=== PATIENT | male | born 1985 | race African-American/Black ===

== ENCOUNTER 2016-03-01 08:57 | Emergency (ER) | payer OTHER ==
[~2016-03-01] VITALS: Ht 180.3 cm; Wt 97.9 kg
[~2016-03-01 08:57] MED LIST: NORCO 5/3251 TABLET PO; PEN-VEE K,VEET500 MG PO
[2016-03-01] MEDS ORDERED: ULTRACET1 TABLET PO (11:05)
[2016-03-01] MEDS ORDERED: MUCINEX D ER T1 EACH PO (11:05)
[2016-03-01] MEDS ORDERED: AUGMENTIN875 MG PO (11:05)
[2016-03-01] MEDS ORDERED: MOTRIN800 MG PO (11:05)
[2016-03-01 11:38] VITALS: BP 122/74
== END 2016-03-01 11:35 | disposition home or self-care (01) ==
LOC: EME 08:57
DX: K04.7 Periapical abscess without sinus (principal); K02.9 Dental caries, unspecified; H65.01 Acute serous otitis media, right ear; F17.200 Nicotine dependence, unspecified, uncomplicated
CPT/HCPCS: 99281; 99284

== ENCOUNTER 2016-06-23 03:37 | Emergency (ER) | payer SELFPAY ==
[~2016-06-23] VITALS: Ht 180.3 cm; Wt 91.4 kg
[~2016-06-23 03:37] MED LIST changes: +AUGMENTIN875 MG PO; +MOTRIN800 MG PO; +MUCINEX D ER T1 EACH PO; +ULTRACET1 TABLET PO
[2016-06-23] MEDS ORDERED: PEN-VEE K,VEET500 MG PO (05:52)
[2016-06-23] MEDS ORDERED: PERCOCET 5/31 TABLET PO (05:52)
[2016-06-23 05:59] VITALS: BP 147/96
== END 2016-06-23 06:03 | disposition home or self-care (01) ==
LOC: EME 03:37
PROC: 3E0T3BZ Introduction of Anesthetic Agent into Peripheral Nerves and Plexi, Percutaneous Approach (ICD-10-PCS; principal; 2016-06-23)
DX: K02.9 Dental caries, unspecified (principal); K08.89 Other specified disorders of teeth and supporting structures; F17.200 Nicotine dependence, unspecified, uncomplicated
CPT/HCPCS: 99281; 99284

== ENCOUNTER 2016-12-12 00:27 | Emergency (ER) | payer SELFPAY ==
[~2016-12-12] VITALS: Ht 180.3 cm; Wt 85.6 kg
[~2016-12-12 00:27] MED LIST changes: +PERCOCET 5/31 TABLET PO
[2016-12-12 01:25] LABS: CHLORIDE 104 mEq/L (99-109); POTASSIUM 4.1 mEq/L (3.7-5.4); SODIUM 140 mEq/L (136-147)
[2016-12-12 01:27] LABS: GLUCOSE 86 mg/dL (70-99)
[2016-12-12 01:29] LABS: ANION GAP 10 MEQ/L (2-14)
[2016-12-12 01:31] LABS: GFR ESTIMATE (CALCULATED) > 59 mL/min/
[2016-12-12 01:32] LABS: UREA NITROGEN (BUN) 10 mg/dL (9-23)
[2016-12-12 02:53] LABS: HEMATOCRIT 40.7 % (38.0-50.0); MCH 30.8 PG (29.0-34.0); MCHC 33.4 G/DL (30.0-36.0); MCV 92.1 FL (86-99); MEAN PLAT.VOLUME 9.1 uM^3 (9.0-12.4); PLATELET COUNT 213 K/uL (156-360); RBC DIS.WIDTH-CV 13.7 % (11.8-14.6); RBC DIS.WIDTH-SD 46.8 % (39-53); RED BLOOD COUNT 4.42 M/uL (4.00-5.50); WHITE BLOOD COUNT 6.1 K/uL (4.1-10.2)
[2016-12-12 03:47] LABS: D-DIMER ELISA < 150.00 ng/mLDDU (<230)
[2016-12-12 03:59] LABS: TROP-I INTERPRETATION NEGATIVE; TROPONIN-I 0.23 ng/mL (0.0-0.30)
[2016-12-12 04:47] LABS: TROP-I INTERPRETATION NEGATIVE; TROPONIN-I < 0.01 ng/mL (0.0-0.30)
[2016-12-12] MEDS ORDERED: TESSALON PERLE100 MG PO (05:36)
[2016-12-12 06:00] VITALS: BP 137/88
== END 2016-12-12 06:02 | disposition home or self-care (01) ==
LOC: EME 00:27
PROVIDERS: Emergency Medicine
DX: J40 Bronchitis, not specified as acute or chronic (principal); F17.200 Nicotine dependence, unspecified, uncomplicated
CPT/HCPCS: 71020; 80048; 84484; 85027; 85379; 93005; 99281; 99284; J1885

== ENCOUNTER 2017-02-01 23:47 | Emergency (ER) | payer SELFPAY ==
[~2017-02-01] VITALS: Ht 180.3 cm; Wt 85.2 kg
[~2017-02-01 23:47] MED LIST changes: +TESSALON PERLE100 MG PO
[2017-02-02] MEDS ORDERED: PEN-VEE K,VEET500 MG PO (00:38)
[2017-02-02] MEDS ORDERED: ULTRAM50 MG PO (00:38)
[2017-02-02 00:45] VITALS: BP 148/102
== END 2017-02-02 00:46 | disposition home or self-care (01) ==
LOC: EME 23:47
DX: K08.89 Other specified disorders of teeth and supporting structures (principal); K02.9 Dental caries, unspecified; K03.81 Cracked tooth; R22.0 Localized swelling, mass and lump, head; F17.200 Nicotine dependence, unspecified, uncomplicated
CPT/HCPCS: 99281; 99283

== ENCOUNTER 2017-03-28 19:00 | Emergency (ER) | payer SELFPAY ==
[~2017-03-28] VITALS: Ht 180.3 cm; Wt 86.1 kg
[~2017-03-28 19:00] MED LIST changes: +ULTRAM50 MG PO
[2017-03-28 20:38] VITALS: BP 146/90
== END 2017-03-28 20:38 | disposition home or self-care (01) ==
LOC: EME 19:00
DX: S63.601A Unspecified sprain of right thumb, initial encounter (principal); W22.09XA Striking against other stationary object, initial encounter; F17.200 Nicotine dependence, unspecified, uncomplicated
CPT/HCPCS: 73130; 99281; 99283